=== PATIENT | male | born 1950 | race Caucasian/White ===

== ENCOUNTER 2017-07-21 08:26 | Day surgery (SDC) | payer BC ==
[~2017-07-21] VITALS: Ht 177.8 cm; Wt 114.9 kg
[2017-07-21] MEDS ORDERED: ZOCOR 20MG20 MG PO (09:02)
[2017-07-21] MEDS ORDERED: PACERONE100 MG PO (09:03)
[2017-07-21] MEDS ORDERED: TOPROL XL 50MG50 MG PO (09:04)
[2017-07-21] MEDS ORDERED: ASPIRIN 81M81 MG/TA2 PO (09:05)
[2017-07-21 09:30] VITALS: BP 144/88; PULSE 60; TEMP 97
[2017-07-21 10:20] VITALS: BP 119/75; PULSE 59; TEMP 97.2
[2017-07-21 10:34] VITALS: BP 133/82; PULSE 53
[2017-07-21 10:45] VITALS: BP 129/101; PULSE 55
== END 2017-07-21 11:00 | disposition home or self-care (01) ==
LOC: SDCO 08:26
DX: Z12.11 Encounter for screening for malignant neoplasm of colon (principal); Z86.010 Personal history of colon polyps; Z88.0 Allergy status to penicillin; I48.91 Unspecified atrial fibrillation; I25.10 Atherosclerotic heart disease of native coronary artery without angina pectoris; Z95.5 Presence of coronary angioplasty implant and graft; G47.33 Obstructive sleep apnea (adult) (pediatric); Z79.82 Long term (current) use of aspirin
CPT/HCPCS: J2704; J7120

== ENCOUNTER 2021-01-05 08:20 | Day surgery (SDC) | payer BC ==
[~2021-01-05] VITALS: Ht 177.8 cm; Wt 105.5 kg
[~2021-01-05 08:20] MED LIST: ASPIRIN 81M81 MG/TA2 PO; PACERONE100 MG PO; TOPROL XL 50MG50 MG PO; ZOCOR 20MG20 MG PO
[2021-01-05] MEDS ORDERED: ELIQUIS 5MG PO (08:48)
[2021-01-05] MEDS ORDERED: PRAVACHOL80 MG PO (08:53)
[2021-01-05 09:00] VITALS: BP 132/86; PULSE 101; TEMP 99.7
[2021-01-05 09:22] LABS: HEMATOCRIT 44.3 % (42.0-52.0); HEMOGLOBIN 14.9 g/dl (13.5-18.0); MEAN CELL VOLUME 98 fl (80.0-100.0); MEAN CORPUSCULAR HEMOGLOBIN 33 pg (27.0-31.0); MEAN CORPUSCULAR HGB CONC 34 g/dl (33.0-37.0); MEAN PLATELET VOLUME 10.1 fl (7.4-10.4); PLATELET COUNT 231 K/mm3 (130-400); RED BLOOD COUNT 4.52 M/mm3 (4.20-5.60); REDCELL DISTRIBUTION WIDTH-CV 11.9 % (11.5-14.5)
[2021-01-05 09:33] LABS: INR 1.9 (0.8-3.0); PROTHROMBIN TIME 20.7 SECONDS (9.7-12.8)
[2021-01-05 09:36] LABS: PARTIAL THROMBOPLASTIN TIME 43.4 SECONDS (26.0-37.0)
[2021-01-05 09:37] LABS: CALCIUM 9.1 mg/dL (8.4-10.2); CREATININE, serum 1.18 (0.66-1.25); MAGNESIUM 2.5 mg/dL (1.6-2.3); POTASSIUM 4.1 mmol/L (3.4-5.0)
[2021-01-05 10:03] LABS: THYROID STIMULATING HORMONE 2.612 uIU/mL (0.465-4.680)
[2021-01-05 10:30] VITALS: BP 118/80; PULSE 65
[2021-01-05 10:45] VITALS: BP 110/73; PULSE 65
[2021-01-05 11:15] VITALS: BP 115/74; PULSE 65
[2021-01-05 11:19] LABS: ALBUMIN 3.4 gm/dL (3.5-5.0); BILIRUBIN UNCONJUGATED 1.5 mg/dL (0.0-1.1); BILIRUBIN,DIRECT 0.2 mg/dL (0.0-0.4); BILIRUBIN,TOTAL 1.7 mg/dL (0.0-1.0); CHOLESTEROL RISK RATIO 5.3; TOTAL PROTEIN 6.8 gm/dL (6.4-8.2)
[2021-01-05 11:30] VITALS: BP 111/72; PULSE 62
[2021-01-05 11:45] VITALS: BP 118/85; PULSE 63
--- NOTE | 2021-01-05 12:00 | NUR ---
Discharge instructions were reviewed with pt/spouse. Pt/spouse voice understanding. Labs from today were printed off and given to the patient. Pt denies pain. Pt gag reflex intact. Pt denies nausea and tolerated intake. Pt up and ambulating in and around the unit with no complications. Pt was discharged via w/c by EDUARDO Narayanan to the care of spouse in private vehicle.
== END 2021-01-05 12:00 | disposition home or self-care (01) ==
LOC: COL.CAR 08:20
PROVIDERS: Internal Medicine Adult Congenital Heart Disease
DX: I48.19 Other persistent atrial fibrillation (principal); I25.10 Atherosclerotic heart disease of native coronary artery without angina pectoris; I11.0 Hypertensive heart disease with heart failure; I50.9 Heart failure, unspecified; I44.7 Left bundle-branch block, unspecified; E66.9 Obesity, unspecified; E78.2 Mixed hyperlipidemia; Z20.822 Contact with and (suspected) exposure to COVID-19; G47.33 Obstructive sleep apnea (adult) (pediatric); M19.90 Unspecified osteoarthritis, unspecified site; Z79.899 Other long term (current) drug therapy; Z79.01 Long term (current) use of anticoagulants; Z79.82 Long term (current) use of aspirin; Z68.33 Body mass index [BMI] 33.0-33.9, adult; Z95.818 Presence of other cardiac implants and grafts
CPT/HCPCS: J2704